=== PATIENT | female | born 1970 | race Hispanic/Latino ===

== ENCOUNTER 2020-12-15 11:05 | Emergency (ER) | payer OTHER ==
[~2020-12-15] VITALS: Ht 157.5 cm; Wt 91.2 kg
[2020-12-15] MEDS ORDERED: METOPROLOL SUCC25 MG PO (12:14)
[2020-12-15] MEDS ORDERED: NORVASC5 MG PO (12:41)
[2020-12-15] MEDS ORDERED: AMITRIPTYLINE H10 MG PO (12:41)
[2020-12-15] MEDS ORDERED: OMEPRAZOLE20 MG PO (12:42)
[2020-12-15] MEDS ORDERED: CLARITIN10 M2 PO (12:42)
[2020-12-15] MEDS ORDERED: METOPROLOL SUCC50 MG PO (12:42)
[2020-12-15] MEDS ORDERED: METHOCARBAMOL750 MG PO (13:49)
[2020-12-15] MEDS ORDERED: MELOXICAM7.5 MG PO (13:49)
== END 2020-12-15 14:07 | disposition home or self-care (01) ==
LOC: ED 11:05
DX: R10.9 Unspecified abdominal pain (principal); I10 Essential (primary) hypertension; J45.909 Unspecified asthma, uncomplicated; E78.00 Pure hypercholesterolemia, unspecified; Z88.0 Allergy status to penicillin; Z79.899 Other long term (current) drug therapy
CPT/HCPCS: 74176; 80053; 81001; 83690; 84703; 85025; 96374; 96375; 99284-25; J2270; J2405; J7030

== ENCOUNTER 2021-05-11 12:54 | Emergency (ER) | payer OTHER ==
[~2021-05-11] VITALS: Ht 157.5 cm; Wt 143.8 kg
[~2021-05-11 12:54] MED LIST: AMITRIPTYLINE H10 MG PO; CLARITIN10 M2 PO; MELOXICAM7.5 MG PO; METHOCARBAMOL750 MG PO; METOPROLOL SUCC25 MG PO; METOPROLOL SUCC50 MG PO; NORVASC5 MG PO; OMEPRAZOLE20 MG PO
[2021-05-11] MEDS ORDERED: NAPROSYN500 MG PO (14:22)
== END 2021-05-11 14:51 | disposition home or self-care (01) ==
LOC: ED 12:54
DX: S93.402A Sprain of unspecified ligament of left ankle, initial encounter (principal); J45.909 Unspecified asthma, uncomplicated; E78.00 Pure hypercholesterolemia, unspecified; I10 Essential (primary) hypertension; Z88.0 Allergy status to penicillin; Z79.899 Other long term (current) drug therapy; W00.0XXA Fall on same level due to ice and snow, initial encounter
CPT/HCPCS: 73590; 73610; 99283-25

== ENCOUNTER 2023-08-20 07:37 | Day surgery (SDC) | payer OTHER ==
[2023-08-14 13:16] VITALS: BP 139/86
[~2023-08-20] VITALS: Ht 157.5 cm; Wt 140.9 kg
--- NOTE | ~2023-08-20 | OR ---
[facility] [address], [place] [address] Draft DATE OF OPERATION: 08/20/2023 SURGEON: Marianela Leigh DO PREOPERATIVE DIAGNOSES: 1. Postmenopausal bleeding. 2. Morbid obesity. 3. Pelvic organ prolapse. 4. Incontinence. POSTOPERATIVE DIAGNOSES: 1. Postmenopausal bleeding. 2. Morbid obesity. 3. Pelvic organ prolapse. 4. Incontinence. PROCEDURES PERFORMED: Hysteroscopy, dilation and curettage. ANESTHESIA: General with LMA. ESTIMATED BLOOD LOSS: 5 mL. FLUIDS DEFICIT: 120 mL. SPECIMENS: Endometrial curettings. FINDINGS: Normal external genitalia with normal clitoris, urethral meatus, bilateral [place]'s, Bartholin's glands. Apical prolapse with cervix at the introitus. The patient also with a significant rectocele. Normal uterine cavity on hysteroscopy with atrophic appearing endometrium. Normal bilateral tubal ostia. COMPLICATIONS: None. PATIENT NAME: MOHSEN MENDOSA OPERATIVE REPORT DATE OF : 74 REPORT #: [id number] PHYSICIAN: MARIANELA LEIGH (JAYESH) PCP: NO PRIMARY CARE PHYSICIAN REPORT IS CONFIDENTIAL AND NOT TO BE RELEASED WITHOUT AUTHORIZATION [facility] [address], [place] [address] Draft INDICATIONS: Mrs. Mendosa is a very pleasant 53-year-old, G13, P11 female with postmenopausal bleeding for approximately 2-3 years with no previous workup. An ultrasound was ordered, but has not been able to be completed unfortunately. Medical history is complicated with morbid obesity with BMI of 59. The patient also complains of prolapse and incontinence symptoms. The patient was consented for hysteroscopy, D and C. Risks, benefits, and alternatives were discussed in detail with the patient. The patient understands and wished to proceed with the procedure. DESCRIPTION OF PROCEDURE: The patient was taken to the OR, where a time-out was performed to confirm correct patient, correct procedure. General anesthesia with LMA was established. A weighted speculum placed in vagina and the anterior lip of the cervix was grasped with an Allis clamp. The cervix gently dilated using Hegar dilators to #7. Operative hysteroscope was placed in the cervical os and advanced under direct visualization to the uterine cavity. Normal uterine cavity with atrophic endometrium was appreciated. MyoSure Lite device was selected and circumferential curettage was performed. The scope was then gently withdrawn. Further evaluation of prolapse was then performed. The cervix does descend to the level of the introitus. A rectovaginal exam was performed that demonstrates significant rectocele consistent with her symptoms. The patient was then taken to PACU in good and stable condition. Sponge, needle, and instrument count was correct x2 at the end of the procedure. The patient received no preoperative antibiotics, but did receive a dose of heparin preoperatively. Fluid deficit was notable, 120 mL. DO KEN Yung/GABBIE /[id number] Copies: ~ PATIENT NAME: MOHSEN MENDOSA OPERATIVE REPORT DATE OF : 74 REPORT #: [id number] PHYSICIAN: MARIANELA LEIGH) PCP: NO PRIMARY CARE PHYSICIAN REPORT IS CONFIDENTIAL AND NOT TO BE RELEASED WITHOUT AUTHORIZATION
[~2023-08-20 07:37] MED LIST changes: +ATIVAN0.5 MG PO; +HEParin SOD (PORCINE) 5,000 UNIT/0.5 ML SYR SUB-Q SCH; +HYDROCHLOROTHIA50 MG PO; +HYDROCODON-ACE1 EA10 PO; +IBLOOD GLUCOSE TEST STRIP 1 EA TEST VI PRN; +LACTATED RINGER'S 1,000 ML IV SCH; +LIDOCAINE HCL 1% 5 ML SDV INJ ONE; +NAPROSYN500 MG PO; +ONDANSETRON ODT8 MG PO
[2023-08-20 08:24] VITALS: BP 123/72
[2023-08-20] MEDS ORDERED: ACETAMINOPHEN 1,000 MG/100 ML VIAL ONE (09:55)
[2023-08-20] MEDS ORDERED: propofoL 200 MG/20 ML VIAL ONE (09:55)
[2023-08-20] MEDS ORDERED: ondansetron HCL 4 MG/2 ML VIAL ONE (09:55)
[2023-08-20] MEDS ORDERED: KETOROLAC TROMETHAMINE 30 MG/ML VIAL ONE (09:55)
[2023-08-20] MEDS ORDERED: fentaNYL citrate 100 MCG/2 ML VIAL ONE (09:55)
[2023-08-20] MEDS ORDERED: DEXAMETHASONE SOD PHOS 4 MG/ML VIAL ONE (09:55)
[2023-08-20] MEDS ORDERED: LIDOCAINE HCL 2% 5 ML SDV ONE (09:55)
[2023-08-20] MEDS ORDERED: ondansetron HCL 4 MG/2 ML VIAL IV PRN ×2 (10:45→11:15)
[2023-08-20] MEDS ORDERED: droPERidol 5 MG/2 ML VIAL IV PRN (10:45)
[2023-08-20] MEDS ORDERED: PROCHLORPERAZINE EDISYLATE 10 MG/2 ML VIAL IV PRN (10:45)
[2023-08-20] MEDS ORDERED: fentaNYL citrate 50 MCG/ML SDV IV PRN (10:45)
[2023-08-20] MEDS ORDERED: HYDROmorphone HCL 1 MG/ML SYR IV PRN (10:45)
[2023-08-20] MEDS ORDERED: IBLOOD GLUCOSE TEST STRIP 1 EA TEST VI PRN (10:45)
[2023-08-20] MEDS ORDERED: NALOXONE HCL 0.4 MG SYR IV PRN ×2 (10:45→11:15)
--- NOTE | 2023-08-20 11:06 | NUR ---
08/20/23 1106 Yoselin العراقي 1052- PT ARRIVES TO PACU NONAROUSABLE. RESP EVEN AND UNLABORED. OXYGEN SAT MID 90'S ON 6L VIA MASK. TRAVIS GUEVARA CMA AND INSTRUMENT PROCESSING TECH AT THE BEDSIDE. 1100- PT RESPONSIVE TO VERBAL STIMULI. UPDATED THAT HER PROCEDURE IS OVER. ALL TALKING IS WITH TRAVIS TRANSLATING. 1101- OXYGEN TITRATED OFF. 1103- PT SAT UP IN BED. PT REPORTS NO DIZZINESS, NAUSEA, OR PAIN. 1105- PT PROVIDED ICE WATER PER HER REQUEST. TOLERATING WELL.
[2023-08-20] MEDS ORDERED: FAMOTIDINE 20 MG/ 2 ML VIAL IV PRN (11:15)
[2023-08-20] MEDS ORDERED: SIMETHICONE 125 MG TABLET CHEWABLE PO PRN (11:15)
[2023-08-20] MEDS ORDERED: METOCLOPRAMIDE HCL 10 MG/2 ML SDV IV PRN (11:15)
[2023-08-20] MEDS ORDERED: MAGNESIUM HYDROXIDE/AL HYDROX 30 ML CUP PO PRN (11:15)
[2023-08-20] MEDS ORDERED: OXYCODONE/APAP 5/325 TAB PO PRN (11:15)
[2023-08-20 11:25] VITALS: BP 120/76
--- NOTE | 2023-08-20 11:36 | NUR ---
1125: PATIENT BACK IN DAY SURGERY ROOM FROM PACU. DROWSY. DENIES PAIN. VS CHECKED. IV SITE WNL. PERIPAD IN PLACE WITH MINIMAL RED DRAINAGE. TOLERATING WATER. WATER REFILLED AND GIVEN DECAF COFFEE PER PATIENT REQUEST. PATIENT SLEEPING AT TIMES. OFFERED TO PUT PATIENT'S OWN CPAP ON HER, PATIENT DECLINED. AT BEDSIDE. CALL LIGHT WITHIN REACH. TRAVIS GUEVARA MA IN ROOM TO TRANSLATE.
--- NOTE | 2023-08-20 12:05 | NUR ---
CHECKED PATIENT. PATIENT SLEEPING. DID NOT DISTURB. CALL LIGHT WITHIN REACH.
[2023-08-20 12:25] VITALS: BP 112/55
--- NOTE | 2023-08-20 12:35 | NUR ---
AWAKENED PATIENT FOR VS CHECKED. DROWSY, BUT EASILY WAKES UP. IV SITE WNL. DENIES PAIN. PORTFOLIO ADMINISTRATOR CALLED TO COME TRANSLATE DISCHARGE INSTRUCTIONS. CALL LIGHT WITHIN REACH.
[2023-08-20] MEDS ORDERED: SIMETHICONE 125 MG TABLET CHEWABLE PO SCH (13:00)
--- NOTE | 2023-08-20 15:37 | NUR ---
1245: DISCHARGE INSTRUCTIONS GIVEN TO PATIENT AND . ALL QUESTIONS ANSWERED. PATIENT ASSISTED OOB AND TO BATHROOM. GATI STEADY TO AND FROM BATHROOM. PATIENT GETTING DRESSED WITH HELP FROM .
--- NOTE | 2023-08-20 15:39 | NUR ---
1305: WHILE GETTING DRESSED, PATIENT BECAME NAUSEOUS. MEDICATED WITH IV ZOFRAN. REQUESTED PATIENT STAY IN DAY SURGERY LONGER FOR OBSERVATION. PATIENT DECLINED AND REQUESTS TO GO HOME. 1310: IV DC'D WNL. TIP INTACT. DRESSING APPLIED. PATIENT DISCHARGED TO HOME WITH AND DAUGHTER VIA WHEELCHAIR.
--- NOTE | 2023-08-22 17:57 | PATH ---
[facility] [address] [facility] [place], [place] [address] Signed SPECIMEN(S): A ENDOMETRIAL CURETTINGS SPECIMEN SOURCE: A. ENDOMETRIAL CURETTINGS CLINICAL HISTORY: Postmenopausal bleeding, fecal incontinence, urinary incontinence FINAL PATHOLOGIC DIAGNOSIS: Endometrial curettings: - Benign proliferative endometrium, negative for hyperplasia or atypia. JVR:nina MICROSCOPIC EXAMINATION: Histologic sections of all submitted blocks are examined by light microscopy. These findings, together with the gross examination, support the pathologic diagnosis. GROSS DESCRIPTION: The specimen, labeled and designated "Mendosa, " and designated on the requisition "[facility]," is received in formalin and consists of multiple fragments of pink-shirley to red-brown soft tissue (2.5 x 1.8 x 0.5 cm in aggregate). The specimen is submitted entirely in cassette A1. AC (under the direct supervision of a pathologist) The Gross Description was prepared using a voice recognition system. The report was reviewed for accuracy; however, sound-alike word errors, addition and/or deletions may occur. If there is any question about this report, please contact Client Services. PERFORMING LABORATORY: Technical component was performed by [facility], [address] [place] [address] (CLIA# [id number]). Professional interpretation was performed by [facility], [address] [place] [address] (CLIA# [id number]). Diagnostician: Gabino Jacobsen MD Pathologist Electronically Signed 08/22/2023 Copies: PATIENT NAME: MOHSEN MENDOSA PATHOLOGY DATE OF : 74 REPORT #: [id number] PHYSICIAN: SUSAN PATHOLOGY PCP: NO PRIMARY CARE PHYSICIAN REPORT IS CONFIDENTIAL AND NOT TO BE RELEASED WITHOUT AUTHORIZATION [address] [address] Signed ~ PATIENT NAME: MOHSEN MENDOSA PATHOLOGY DATE OF : 74 REPORT #: [id number] PHYSICIAN: SUSAN PATHOLOGY PCP: NO PRIMARY CARE PHYSICIAN REPORT IS CONFIDENTIAL AND NOT TO BE RELEASED WITHOUT AUTHORIZATION
== END 2023-08-20 13:10 | disposition home or self-care (01) ==
LOC: DS 07:37
PROVIDERS: ATTEND Obstetrics & Gynecology
PROC: 0UDB8ZZ Extraction of Endometrium, Via Natural or Artificial Opening Endoscopic (ICD-10-PCS; principal; 2023-08-20 09:30)
DX: N95.0 Postmenopausal bleeding (principal); N81.89 Other female genital prolapse; R32 Unspecified urinary incontinence; I10 Essential (primary) hypertension; E11.9 Type 2 diabetes mellitus without complications; G47.33 Obstructive sleep apnea (adult) (pediatric); E66.01 Morbid (severe) obesity due to excess calories; Z68.43 Body mass index [BMI] 50.0-59.9, adult; Z79.899 Other long term (current) drug therapy; Z79.82 Long term (current) use of aspirin; Z88.0 Allergy status to penicillin; Z88.5 Allergy status to narcotic agent; Z88.1 Allergy status to other antibiotic agents
CPT/HCPCS: 00952; J0131; J1100; J1644; J1885; J2001; J2405; J2704; J3010; J7121

== ENCOUNTER 2025-01-03 19:04 | Emergency (ER) | payer OTHER ==
[~2025-01-03] VITALS: Ht 157.5 cm; Wt 147.5 kg
[~2025-01-03 19:04] MED LIST changes: -HEParin SOD (PORCINE) 5,000 UNIT/0.5 ML SYR SUB-Q SCH; -IBLOOD GLUCOSE TEST STRIP 1 EA TEST VI PRN; -LACTATED RINGER'S 1,000 ML IV SCH; -LIDOCAINE HCL 1% 5 ML SDV INJ ONE
[2025-01-03] MEDS ORDERED: FLONASE ALLERG9.9 ML NAS (20:44)
[2025-01-03] MEDS ORDERED: FLUTICASONE PROPIONATE 50 MCG BTL NAS ONE (20:45)
[2025-01-03] MEDS ORDERED: HYDROCODONE BIT/ACETAMINOPHEN 5/325 MG 1 TAB HOME.PACK PO ONE (20:45)
[2025-01-03 21:07] VITALS: BP 145/99
== END 2025-01-03 21:04 | disposition home or self-care (01) ==
LOC: ED 19:04
DX: H69.82 Other specified disorders of Eustachian tube, left ear (principal); I10 Essential (primary) hypertension; J45.909 Unspecified asthma, uncomplicated; Z88.0 Allergy status to penicillin; Z79.899 Other long term (current) drug therapy
CPT/HCPCS: 99282; A9270